=== PATIENT | male | born 2005 | race Caucasian/White ===

== ENCOUNTER 2024-11-26 10:58 | Emergency (ER) | payer MEDICAID, SELFPAY ==
[2024-11-26 11:22] VITALS: BP 134/95; PULSE 114; RESP 19; TEMP 36.9; O2SAT 100; BMI 21.6
--- NOTE | 2024-11-26 11:26 | XR_ITS ---
Examination: CT chest, without intravenous contrast. CT abdomen, without intravenous contrast. CT pelvis, without intravenous contrast. 2-D sagittal and coronal reconstructions. 3-D reconstructions. Date and time of exam:November 26, 2024 11:56 AM INDICATIONS: Patient fell off a snowboard 3 days ago with injury to the chest and abdomen, chest pain abdomen pain back pain CTDI vol (mgy) 6.09 DLP (MGycm)500 Technique: Multiple CT images, 3.0 mm slice thickness, obtained chest, abdomen, pelvis, with the high-resolution 64 slice scanner.. Sagittal and coronal 2-D reconstructions are obtained. 3-D reconstructions Low dose protocols were performed. One or more of the following dose reduction techniques were used; automated exposure control, adjustment of the mA and/or KV according to patient size, use of iterative reconstruction technique. Findings: Pneumomediastinum, soft tissue air extending into the neck No pneumothoraces Thoracic aorta pulmonary arteries intact No hemopericardium The manubrium and the body the sternum are intact No thoracic or lumbar vertebral body compression fracture Ribs intact No abdominal parenchymal laceration Abdominal aorta intact No free blood in the abdomen Hips bones of the pelvis intact IMPRESSION: Pneumomediastinum No pneumothoraces Thoracic aorta pulmonary arteries intact No hemopericardium No abdominal pain laceration Abdominal aorta intact No free blood in the abdomen or pelvis
--- NOTE | 2024-11-26 11:26 | XR_ITS ---
Examination: CT brain head without contrast. 2-D sagittal coronal reconstructions Date and time of exam:November 26, 2024 1145 hours INDICATIONS: Patient fell off a snowboard 3 days ago with injury to the head, head pain CTDI: vol (mGy):55 DLP: (mGycm):1157 Technique: Multiple CT axial sections of the brain have been obtained, 5 mm slice thickness. Contrast has not been administered. 2-D sagittal, coronal reconstructions have been obtained Low dose protocols were performed. One or more of the following dose reduction techniques were used; automated exposure control, adjustment of the mA and/or KV according to patient size, use of iterative reconstruction technique. Findings: No significant ventricular enlargement. Intra-axial or extra-axial hemorrhage density is not seen. No mass effect or midline shift Basal cisterns are not remarkable. Fourth ventricle is midline. Cranial vault intact. Impression: Negative for acute hemorrhage, mass effect or midline shift
--- NOTE | 2024-11-26 11:26 | XR_ITS ---
Examination: CT cervical spine without contrast 2-D sagittal reconstructions 2-D coronal reconstructions 3-D reconstructions. Exam date and time:November 26, 2024 1145 hours INDICATIONS: Patient fell off a snowboard 3 days ago with injury to the neck, neck pain CTDI:vol (mGy) 8.39 DLP: (mGycm) 217 Technique: Multiple 2 mm axial sections of the cervical spine have been obtained. The coronal and sagittal reconstructions have been obtained. 3-D reconstructions have been obtained. Low dose protocols were performed. One or more of the following dose reduction techniques were used; automated exposure control, adjustment of the mA and/or KV according to patient size, use of iterative reconstruction technique. Findings: Axial sections demonstrate intact base of the skull. C1 exhibit satisfactory relationship to the odontoid. No acute cervical vertebral body fracture seen. Alignment posterior spinous processes satisfactory. Impression: No acute cervical fracture. Incidental note soft tissue air surrounding the esophagus which may be secondary to pneumomediastinum Consider CT chest without intravenous contrast follow-up
[2024-11-26 11:51] LABS: Basophils % (Auto) 1 % (0-2.5); Eosinophils # (Auto) 0.1 Thou/mm3 (0.0-0.5); Eosinophils % (Auto) 2 % (0-10); Immature Granulocytes % (Auto) 0 % (0-0); Lymphocytes % (Auto) 40 % (10-50); Mean Corpuscular HGB Conc 36.2 g/dl (31.0-37.0); Mean Corpuscular Hemoglobin 30.7 pg (25.0-35.0); Mean Corpuscular Volume 85 fL (80-100); Monocytes # (Auto) 0.5 Thou/mm3 (0.0-0.8); Monocytes % (Auto) 10 % (0-12); Neutrophils # (Auto) 2.4 Thou/mm3 (1.8-7.7); Neutrophils % (Auto) 48 % (37-80); Nucleated Red Blood Cell % 0 /100 WBC (0); Platelet Count 235 Thou/mm3 (140-440); RDW Standard Deviation 37.1 fL (35.1-43.9); Red Blood Count 5.54 Miln/mm3 (4.50-5.90); White Blood Count 4.9 Thou/mm3 (4.5-11.0)
--- NOTE | 2024-11-26 13:05 | EDNOTE_ITS ---
ED General RME/HPI General Chief complaint: Back Pain/Injury Stated complaint: DUGAN, BACK/RIBCAGE PAIN SP SNOW BOARD INJURY Time Seen by Provider: 11/26/24 11:08 Arrival date/time: 11/26/24 10:58 CC: Chest fullness HPI patient was snowboarding when he landed hard on his back after coming to abrupt stop going at estimated 35 to 40 miles an hour. HPI 3 days ago, the patient went snowboarding the following day., but states since the incident he has felt a fullness in his chest which is worse when he lays flat to sleep at night. Patient also comments on feel like he is swallowing a ball every time he burps. The patient denies any shortness of breath difficulty breathing nausea vomiting patient was helmeted at the time of the incident. Patient is awake alert oriented has no other complaints other than chest fullness. Related Data Previous Rx's ?Medication ?Instructions ?Recorded amoxicillin 875 mg-potassium 1 tab PO BID #14 tabs 11/26/24 clavulanate 125 mg tablet Allergies Allergy/AdvReac Type Severity Reaction Status Date / Time No Known Allergies Allergy Mild Uncoded 09/13/12 11:55 Review of Systems Review of Systems Narrative Review of Systems: GEN: No fever, no chills, no weight loss EYES: No discharge, no visual changes, no pain HEENT: No ear pain, no congestion, no sore throat PULM: No shortness of breath, no cough, no congestion CV: No chest pain, no dyspnea on exertion, no palpitations,+ chest fullness GI: No nausea, no vomiting, no diarrhea, no pain, no constipation : No frequency, no urgency, no dysuria MUSC/SKEL: No joint pain, no back pain SKIN: No rash PSYCH: No hallucinations, no depression HEME/LYMPH: No easy bleeding or bruising tendencies NEURO: No weakness, no headache Past Medical History Social History SMOKING STATUS: Never smoker ED Exam Narrative Physical exam: [General: Not in any acute distress Head normocephalic, no step-offs hematomas induration ulceration crepitus. HEENT: No raccoon's eyes Chandra sign facial asymmetry otorrhea or rhinorrhea eyes: Pupils are PERRLA EOMs are intact mouth pink moist membranes uvula is midline swallow symmetrical phonation is normal. Neck is supple nontender, no edema JVD crepitus no stridorous with auscultation Chest equal chest rise nontender to palpation Respiratory: Clear to auscultation no wheezes crackles or rubs CV: Rate rhythm is regular no murmurs rubs or clicks Abdomen is soft nontender no masses positive bowel sounds all 4 quadrants Back: No CVA tenderness no spinous process tenderness from cervical spine thoracic and lumbar spine, no ecchymosis abrasions lacerations Skin: Intact no petechiae rash induration ulceration or crepitus Extremities: Moving all extremity against resistance cap refill less than 2 seconds neurosensory intact Neuro: Awake alert oriented x3 Glascow coma 15 no focal deficits] Course Course Course Narrative: Patient's case and medical condition discussed with Dr. Sweet, trauma surgeon at [facility] regarding the patient states the patient can be observed and discharged home. However caveat is that the patient smoked marijuana during that time of the snowboarding there is a risk for infection. Patient has been in the emergency room for 4 hours at this time patient will be discharged on Augmentin with a return follow-up in 24 hours. The assumption is the patient's mediastinum will be reabsorb slowly over time without infection, patient advised if there is a worsening of symptoms including fever or abrupt increased shortness of breath to return immediately to the ER for further evaluation. Quality Measures none Orders Category Date Time Status Referral - Cooker Syrup Stat Cons 11/26/24 13:[address] cervical spine wo con Stat Exams 11/26/24 11:[address] chest abdomen pelvis wo Stat Exams 11/26/24 11:[address] head/brain wo con Stat Exams 11/26/24 11:26 Completed CBC Stat Lab 11/26/24 11:28 Completed Amoxicillin/Pot Clav 875 [Augmentin 875] Med 11/26/24 14:10 Once 1 tab PO X1 ONE Vital Signs Vital signs: Vital Signs Temperature 98.4 F 11/26/24 11:22 Pulse Rate 114 H 11/26/24 11:22 Respiratory Rate 19 11/26/24 11:22 Blood Pressure 134/95 H 11/26/24 11:22 Pulse Oximetry (%) 100 11/26/24 11:22 Oxygen Delivery Method Room Air 11/26/24 11:22 [facility] Patient data External records reviewed:: [facility] previous records Clinical information provided by:: patient Social determinants that could affect healthcare access:: none Patient has the following chronic illnesses:: None How is presenting disease/condition affected by chronic disease/condition?: u neffected by Evaluation data The following diagnostics were reviewed and interpreted by me:: lab results and radiology exam(s) Lab and/or radiology exams considered but not ordered:: CBC shows no acute leukocytosis anemia thrombocytopenia Head and C-spine CT as interpreted by me read by radiology as negative for any acute finding requires emergent or immediate intervention CT chest abdomen pelvis shows the patient has pneumomediastinum with soft tissue air extending into the neck. No pneumothoraces no other acute finding as interpreted by me read by radiology. Interpretation Summary: Pneumomediastinum Medications Medications considered but not ordered:: None Medication administrations:: Medication Administration History Amoxicillin/Clavulanate Potassium (Amoxicillin/Pot Clav 875 Tablet) 1 tab PO X1 ONE Stop: 11/26/24 14:11 None Consultations Consultation(s) initiated? (list below): Yes Consultation #1 (Physician, Specialty, Details): Kee trauma surgeon Time: 14:12 Diagnosis Differential Diagnosis ED Complaint MDM: Pneumomediastinum pneumothorax pulmonary contusion Most likely diagnosis given after review of the tests above:: Pneumomediastinum Admission Indicated Admission indicated?: not indicated Explain why admission is indicated or not indicated:: Stable for close outpatient follow-up Admission Request Was there a request for admission?: No Disposition Plan Disposition Plan: Discharge Discharge Attestation Discharge Attestation: The patient and all family members were given an opportunity to ask questions and understood the discharge instructions. Discharge instructions specifically effects, indications for sooner follow up or return to the emergency department, and the expected course of current diagnosis. Patient condition: Stable Medical Decision Making Differential Diagnosis Differential Diagnosis: Pneumomediastinum pneumothorax pulmonary contusion Lab Data 11/26/24 11:28 Labs: Lab Results 11/26/24 Range/Units 11:28 WBC 4.9 (4.5-11.0) Thou/mm3 RBC 5.54 (4.50-5.90) Miln/mm3 Hgb 17.0 H (13.5-16.0) g/dL Hct 47.0 (41.0-53.0) % MCV 85 (80-100) fL MCH 30.7 (25.0-35.0) pg MCHC 36.2 (31.0-37.0) g/dl RDW Std Deviation 37.1 (35.1-43.9) fL Plt Count 235 (140-440) Thou/mm3 Neut % (Auto) 48 (37-80) % Lymph % (Auto) 40 (10-50) % [place] % (Auto) 10 (0-12) % Eos % (Auto) 2 (0-10) % Baso % (Auto) 1 (0-2.5) % Neut # (Auto) 2.4 (1.8-7.7) Thou/mm3 Lymph # (Auto) 2.0 (1.0-4.8) Thou/mm3 [place] # (Auto) 0.5 (0.0-0.8) Thou/mm3 Eos # (Auto) 0.1 (0.0-0.5) Thou/mm3 Baso # (Auto) 0.0 (0.0-0.2) Thou/mm3 Immature Gran # (Auto) 0.00 (0.00-0.00) Thou/mm3 Absolute Nucleated RBC 0.00 (0.00-0.00) Thou/mm3 Immature Gran % 0 (0-0) % Nucleated RBC % 0 (0) /100 WBC Discharge Plan Plan Patient Disposition: HOME (Self Care) Patient condition on transfer: Stable Prescriptions/Referrals Prescriptions/Med Rec: New amoxicillin-pot clavulanate 875-125 mg tablet 1 tab PO BID Qty: 14 0RF Problem List Clinical Impression: Pneumomediastinum Patient/Caregiver Discharge Instructions Other Activity Instructions:: Take the medications as prescribed until completely gone follow-up in 24 hours for recheck, if there is a worsening of symptoms including fever abrupt onset of worsening shortness of breath return immediately to the emergency room for reevaluation. Since there is a question of whether smoking marijuana before or after the incident, please make sure you complete the antibiotics until completely gone. Avoid all heavy lifting contact sports snowing skateboarding any potential high impact activity until this is resolved. Follow-up with your primary care doctor in 2 to 3 weeks for reassessment. Education Materials: Lung Anatomy Print Language: [place] Stand Alone Forms: Nellie Award Info., Work/School Release, Patient Portal Info Letter MARIELOS/OSBALDO Supervising Physician MARIELOS/OSBALDO Supervising Physician: Gorge Diaz ENP
--- NOTE | 2024-11-26 13:46 | PC.CM ---
[id number] I received a referral to transfer patient due to a snow board accident. Patient needing trauma doctor. I contacted [facility] and initiated a transfer. I faxed over information.
[2024-11-26] MEDS: AMOXICILLIN/POT CLAV 875 TABLET 1 TAB PO (14:34)
[2024-11-26 14:37] VITALS: BP 143/81; PULSE 100; RESP 18; TEMP 37.3; O2SAT 100
== END 2024-11-26 14:48 | disposition home or self-care (01) ==
PROVIDERS: Nurse Practitioner Primary Care; Emergency Provider Emergency Medicine
DX: T79.7XXA Traumatic subcutaneous emphysema, initial encounter (principal); S19.9XXA Unspecified injury of neck, initial encounter; S09.90XA Unspecified injury of head, initial encounter; W17.89XA Other fall from one level to another, initial encounter; Y93.23 Activity, snow (alpine) (downhill) skiing, snowboarding, sledding, tobogganing and snow tubing
CPT/HCPCS: 36415; 70450; 71250; 72125; 74176; 85025; 99284; A9270

== ENCOUNTER 2024-11-27 11:24 | Emergency (ER) | payer MEDICAID, SELFPAY ==
--- NOTE | 2024-11-27 11:47 | XR_ITS ---
Examination: PA lateral chest 2 views TECHNIQUE: Upright PA lateral chest 2 views Exam date and time: November 27, 2024 1155 hours INDICATIONS: Patient fell off a snowboard 4 days ago with pneumomediastinum on CT chest November 26, 2024 FINDINGS: Normal heart size Lungs are clear. No pneumomediastinum No pneumothoraces Clavicles ribs appear intact IMPRESSION: Negative for pneumomediastinum Negative for pneumothorax
--- NOTE | 2024-11-27 11:57 | PD.EDADULT ---
ED General RME/HPI General Chief complaint: General Adult/Misc Complain Stated complaint: RECHECK FROM YESTERDAY Time Seen by Provider: 11/27/24 11:47 Arrival date/time: 11/27/24 11:24 CC: Pain when swallowing mild chest pressure HPI significant improvement from yesterday when the patient was seen by myself. The patient had a skiing accidents with snowboarding 4 days ago, and had pneumoperitoneum extending up into the neck. The patient is awake alert oriented. Patient was told to return today and states he feels significant better. Patient is nontoxic-appearing not in any acute distress. Related Data Previous Rx's ?Medication ?Instructions ?Recorded amoxicillin 875 mg-potassium 1 tab PO BID #14 tabs 11/26/24 clavulanate 125 mg tablet Allergies Allergy/AdvReac Type Severity Reaction Status Date / Time No Known Allergies Allergy Verified 11/27/24 11:26 Review of Systems Review of Systems Narrative Review of Systems: GEN: No fever, no chills, no weight loss EYES: No discharge, no visual changes, no pain HEENT: No ear pain, no congestion, no sore throat PULM: No shortness of breath, no cough, no congestion CV: No chest pain, no dyspnea on exertion, no palpitations GI: No nausea, no vomiting, no diarrhea, no pain, no constipation : No frequency, no urgency, no dysuria MUSC/SKEL: No joint pain, no back pain SKIN: No rash PSYCH: No hallucinations, no depression HEME/LYMPH: No easy bleeding or bruising tendencies NEURO: No weakness, no headache ED Exam Narrative Physical exam: [General: Not in any acute distress Head normocephalic HEENT: Within acceptable limits Neck is supple nontender, no JVD no edema Chest equal chest rise nontender to palpation, no crepitus Respiratory: Clear to auscultation no wheezes crackles or rubs CV: Rate rhythm is regular no murmurs rubs or clicks Abdomen is soft nontender no masses positive bowel sounds all 4 quadrants Back: No crepitus, no CVA tenderness no spinous process tenderness from cervical spine thoracic and lumbar spine Skin: Intact no petechiae rash induration ulceration or crepitus Extremities: Moving all extremity against resistance cap refill less than 2 seconds neurosensory intact Neuro: Awake alert oriented x3 Glascow coma 15 no focal deficits] Course Quality Measures none Orders Category Date Time Status XR chest 2V Stat Exams 11/27/24 11:47 Completed Vital Signs Vital signs: Vital Signs Temperature 98.6 F 11/27/24 12:07 Pulse Rate 81 11/27/24 12:07 Respiratory Rate 16 11/27/24 12:07 Blood Pressure 133/61 H 11/27/24 12:07 Pulse Oximetry (%) 100 11/27/24 12:07 Oxygen Delivery Method Room Air 11/27/24 12:07 [facility] Patient data External records reviewed:: [facility] previous records Clinical information provided by:: patient Social determinants that could affect healthcare access:: none Patient has the following chronic illnesses:: Pneumoperitoneum from a snowboarding accident 4 days ago How is presenting disease/condition affected by chronic disease/condition?: uneffected by Evaluation data The following diagnostics were reviewed and interpreted by me:: radiology exam(s) Lab and/or radiology exams considered but not ordered:: Chest x-rays interpreted by me read by radiology shows no pneumomediastinum no pneumothorax Interpretation Summary: Comfortable discharging this patient home he is given implicit instructions to follow-up with his antibiotics completely gone, if there is a worsening of shortness of breath or fever return immediately to the emergency room for reevaluation. Medications Medications considered but not ordered:: None Medication administrations:: None Consultations Consultation(s) initiated? (list below): No Diagnosis Differential Diagnosis ED Complaint MDM: Pneumomediastinum pneumothorax crepitus Most likely diagnosis given after review of the tests above:: Pneumomediastinum Admission Indicated Admission indicated?: not indicated Explain why admission is indicated or not indicated:: Stable for outpatient follow-up Admission Request Was there a request for admission?: No Disposition Plan Disposition Plan: Discharge Discharge Attestation Discharge Attestation: The patient and all family members were given an opportunity to ask questions and understood the discharge instructions. Discharge instructions specifically effects, indications for sooner follow up or return to the emergency department, and the expected course of current diagnosis. Patient condition: Stable Medical Decision Making Differential Diagnosis Differential Diagnosis: Pneumomediastinum pneumothorax crepitus Discharge Plan Plan Patient Disposition: HOME (Self Care) Patient condition on transfer: Stable Prescriptions/Referrals Prescriptions/Med Rec: No Action amoxicillin-pot clavulanate 875-125 mg tablet 1 tab PO BID Qty: 14 0RF Problem List Clinical Impression: Pneumomediastinum Patient/Caregiver Discharge Instructions Print Language: Frisian Stand Alone Forms: Nellie Award Info., Work/School Release, Patient Portal Info Letter PA/PERSONAL CLOTHING LAUNDRY AIDE Supervising Physician PA/PERSONAL CLOTHING LAUNDRY AIDE Supervising Physician: Gorge Diaz ENP
[2024-11-27 12:07] VITALS: BP 133/61; PULSE 81; RESP 16; TEMP 37; O2SAT 100; BMI 21.4
== END 2024-11-27 12:56 | disposition home or self-care (01) ==
LOC: SERX 13:19
PROVIDERS: Emergency Provider Emergency Medicine
DX: T79.7XXA Traumatic subcutaneous emphysema, initial encounter (principal); Y93.23 Activity, snow (alpine) (downhill) skiing, snowboarding, sledding, tobogganing and snow tubing
CPT/HCPCS: 71046; 99283

== ENCOUNTER → 2024-12-21 | Outpatient (CLI) | payer MEDICAID, SELFPAY ==
--- NOTE | 2024-12-21 10:52 | XR_ITS ---
Examination: PA lateral chest 2 views TECHNIQUE: Upright PA lateral chest 2 views Exam date and time: December 21, 2024 1106 hours Comparison November 27, 2024 INDICATIONS: Skiing accident one month ago, CT chest November 26, 2024 pneumomediastinum FINDINGS: Normal heart size Lungs are clear. Negative for pneumomediastinum No pneumothorax Clavicles ribs intact IMPRESSION: No active disease Negative for pneumomediastinum Negative for pneumothorax
== END | disposition home or self-care (01) ==
DX: T79.7XXA Traumatic subcutaneous emphysema, initial encounter (principal)
CPT/HCPCS: 71046

== ENCOUNTER 2025-04-07 10:55 | Emergency (ER) | payer SELFPAY ==
[2025-04-07 10:55] VITALS: BMI 21.8
[2025-04-07 11:19] VITALS: BP 135/82; PULSE 81; RESP 16; TEMP 37.1; O2SAT 100
--- NOTE | 2025-04-07 11:51 | XR_ITS ---
Examination: Wrist, left 3 views Technique: Wrist AP, oblique, lateral 3 views Date and time of exam: April 07, 2025 1155 hrs. Indications: Wrist injury yesterday, wrist pain. Findings: Adequate bone density. Soft tissue swelling dorsum of the wrist No acute fracture No dislocation Impression: No acute fracture
--- NOTE | 2025-04-07 13:48 | EDNOTE_ITS ---
Upper Extremity Injury RME/HPI General Chief Complaint: Fall Stated Complaint: L WRIST PAIN Time Seen by Provider: 04/07/25 11:17 Source: patient Arrival date/time: 04/07/25 10:55 This is a case of a 19-year-old male who came in in the emergency room due to left wrist pain and injury history of present illness 2 days prior to arrival in the emergency room when the patient was doing snowboarding accidentally fell and landed on his left wrist denies numbness weakness or tingling sensation Limitations: no limitations Related Data Previous Rx's ?Medication ?Instructions ?Recorded amoxicillin 875 mg-potassium 1 tab PO BID #14 tabs clavulanate 125 mg tablet ibuprofen 800 mg tablet 800 mg PO Q8H PRN pain #30 t abs 04/07/25 Allergies Allergy/AdvReac Type Severity Reaction Status Date / Time No Known Allergies Allergy Verified 04/07/25 10:58 Review of Systems Review of Systems Systems Reviewed: All systems reviewed, normal except as documented Constitutional Constitutional: Reports system reviewed and no additional complaints, except as documented ENT Ears, Nose, Mouth, and Throat: Denies neck pain Cardiovascular Cardiovascular: Reports system reviewed and no additional complaints, except as documented Respiratory Respiratory: Reports system reviewed and no additional complaints, except as documented Musculoskeletal Musculoskeletal: Reports system reviewed and no additional complaints, except as documented, Denies back pain, Denies deformity, Denies joint swelling, Denies limited range of motion, Denies loss of height, Denies muscle cramps, Denies muscle weakness, Denies myalgias, Denies neck pain, Denies numbness, Denies radiating pain into limb, Denies stiffness and Denies tingling Neurologic Neurologic: Reports system reviewed and no additional complaints, except as documented, Reports as per HPI, Denies numbness and Denies tingling Past Medical History Past Medical History CARDIAC: Negative Congestive Heart Failure RESPIRATORY: Negative Chronic Obstructive Pulmonary Disease (COPD) GENITOURINARY: Negative Renal Disease ENDOCRINE: Negative Diabetes Mellitus Type 1 or Diabetes Mellitus Type 2 Social History SMOKING STATUS: Current some day smoker ED Exam General Limitations: Present no limitations General appearance: Present alert, in no apparent distress and other (Patient is awake alert oriented not in distress nontoxic looking) Head Head exam: Present atraumatic Eye Eye exam: Present normal appearance, PERRL and EOMI ENT ENT exam: Present normal exam, normal oropharynx and mucous membranes moist Neck Neck exam: Present normal inspection, full ROM and trachea midline; Absent tenderness, meningismus, lymphadenopathy or thyromegaly Chest Chest inspection: Present normal inspection and symmetric chest wall rise Respiratory Respiratory exam: Present normal lung sounds bilaterally; Absent respiratory distress, wheezes, stridor, accessory muscle use or prolonged expiratory phase Cardiovascular Cardiovascular exam: Present regular rate, normal rhythm and normal heart sounds; Absent systolic murmur or diastolic murmur Abdominal Exam Abdominal exam: Present soft and normal bowel sounds Extremities Exam Extremities exam: Present normal inspection and full ROM Expanded Upper Extremity Exam Forearm/Wrist exam: Present full ROM and tenderness (Mild tenderness on the left wrist lateral aspect mild swelling no crepitation no deformity no redness no dislocation no erythema ROM intact pulses were full and equal capillary refill less than 2 seconds neurovascular intact) Back Exam Back exam: Present normal inspection and full ROM Neurological Exam Neurological exam: Present alert, oriented X3, CN II-XII intact, normal gait and reflexes normal; Absent motor sensory deficit Psychiatric Psychiatric exam: Present normal affect and normal mood Skin Skin exam: Present warm, dry, intact and normal color Course Quality Measures none Orders Category Date Time Status Splint / Immobilizer STAT Care 04/07/25 13:44 Active XR wrist comp LT min 3V Stat Exams 04/07/25 11:51 Taken Ibuprofen Tab [Motrin Tab] Med 04/07/25 13:44 Discontinued 800 mg PO X1 ONE Vital Signs Vital signs: Vital Signs Temperature 98.8 F 04/07/25 11:19 Pulse Rate 81 04/07/25 11:19 Respiratory Rate 16 04/07/25 11:19 Blood Pressure 135/82 H 04/07/25 11:19 Pulse Oximetry (%) 100 04/07/25 11:19 Oxygen Delivery Method Room Air 04/07/25 11:19 Oxygen saturation 100% room air normal Extremity Injury MDM Narrative MDM Narrative:: This is a case of a 19-year-old male who came in in the emergency room due to left wrist pain and injury history of present illness 2 days prior to arrival in the emergency room when the patient was doing snowboarding accidentally fell and landed on his left wrist denies numbness weakness or tingling sensation patient is awake alert oriented not in distress nontoxic looking patient denies any other injury denies any head neck chest or abdominal injury there is no loss of consciousness left wrist exam mild to moderate tenderness on the lateral aspect of the left wrist with mild swelling no crepitation no deformity no redness ROM intact pulses were full and equal capillary refill less than 2 seconds x-ray read by me showed a avulsion fracture on the ulnar distal of the left wrist thus splint was applied tolerated well neurovascular intact I have a discussion with the patient patient needs to see an orthopedic surgeon for further evaluation and treatment of their distal fracture of the ulna left wrist RICE treatment will continue by the patient at home Motrin that was prescribed Patient was discharged with comfortable condition walking with stable gait. Patient verbalized no further complains explained diagnosis and answered patient question. Patient is comfortable with the proposed management plan including the need to follow up with his/her primary care physician and any specialist if applicable Discussed patient for any urgent condition or worsening sx, He/She needed to go to emergency room immediately or call 911. Patient acknowledge the responsibility to follow up as instructed and to monitor her/his symptoms. For any persistence of the symptoms for more than 3-5 days return precaution advised. Discussed the result of the test and was given printed discharge instruction Patient data External records reviewed:: [facility] previous records Clinical information provided by:: patient Social determinants that could affect healthcare access:: none Patient has the following chronic illnesses:: None How is presenting disease/condition affected by chronic disease/condition?: no chronic disease Evaluation data The following diagnostics were reviewed and interpreted by me:: radiology exam(s) Lab and/or radiology exams considered but not ordered:: Reviewed Interpretation Summary: Reviewed Medications / Prescriptions Medications or Prescriptions considered but not ordered:: Given Medication administrations:: Medication Administration History Discontinued Medications Ibuprofen (Ibuprofen Tab 400 Mg Tablet) 800 mg PO X1 ONE Stop: 04/07/25 13:45 Given Consultations Consultation(s) initiated? (list below): No Diagnosis Upper Extremity Injury Differential Diagnosis: sprain and strain of wrist Most likely diagnosis given after review of the tests above:: Distal ulnar fracture Admission Indicated Admission indicated?: not indicated Explain why admission is indicated or not indicated:: Do not indicate Admission Request Was there a request for admission?: No Admission Attestation Admission request attestation: Not indicated Disposition Plan Disposition Plan: Discharge Discharge Attestation Discharge Attestation: The patient and all family members were given an opportunity to ask questions and understood the discharge instructions. Discharge instructions specifically effects, indications for sooner follow up or return to the emergency department, and the expected course of current diagnosis. Patient condition: Stable Discharge Plan Plan Patient Disposition: HOME (Self Care) Prescriptions/Referrals Prescriptions/Med Rec: New ibuprofen 800 mg tablet 800 mg PO Q8H PRN (Reason: pain) Qty: 30 0RF No Action amoxicillin-pot clavulanate 875-125 mg tablet 1 tab PO BID Qty: 14 0RF Problem List Clinical Impression: Distal end of ulna fracture, closed Patient/Caregiver Discharge Instructions Education Materials: ED Forearm Fx Wo Redu, ED Splint Care, Plaster, ED RICE Additional Instructions: Follow-up with your primary care physician in 2 days for reevaluation and to be referred to orthopedic surgeon for further evaluation and treatment of your distal ulnar fracture left wrist for any worsening symptoms or any emergent concerns such as numbness weakness tingling sensation call 911 or go to the nearest emergency room ice pack every 2 hours for 20 minutes for 24 hours then alternate with warm compress elevate to decrease swelling keep the splint in place until cleared by your primary care physician Print Language: Belgian Stand Alone Forms: Nellie Award Info., Work/School Release, Patient Portal Info Letter PA/SALES REPRESENTATIVE SALES MANAGER Supervising Physician PA/SALES REPRESENTATIVE SALES MANAGER Supervising Physician: dr frazier
[2025-04-07 15:27] VITALS: BP 122/78; PULSE 70; RESP 18; TEMP 36.8; O2SAT 99
--- NOTE | 2025-04-07 18:02 | PRELIM_ITS ---
Radiographs of the left wrist (3 views) April 07, 2025 1155 hours Clinical history: wrist pain Comparison: No prior study is available for comparison. Findings: There is no evidence of fracture or dislocation. The radiocarpal, carpometacarpal and intercarpal joints are normal in configuration and alignment. No bony abnormality is identified. There is a well corticated osseous density adjacent toulnar styloid process, which may represent an accessory ossicle. The periarticular soft tissues are normal. Impression: No significant osseous or articular abnormality. Report Electronically Signed By: Carmencita Frazier 04/07/2025 6:01:55 PM [EST]
== END 2025-04-07 15:28 | disposition home or self-care (01) ==
LOC: SERX 15:14
PROVIDERS: Emergency Provider Family Medicine
DX: S52.602A Unspecified fracture of lower end of left ulna, initial encounter for closed fracture (principal); W19.XXXA Unspecified fall, initial encounter; Y93.23 Activity, snow (alpine) (downhill) skiing, snowboarding, sledding, tobogganing and snow tubing
CPT/HCPCS: 29125; 73110; 99283